=== PATIENT | female | born 1995 | race Caucasian/White ===

== ENCOUNTER 2017-01-10 09:30 | Emergency (ER) | payer OTHER ==
[~2017-01-10] VITALS: Ht 162.6 cm; Wt 74.8 kg
[2017-01-10] MEDS ORDERED: TYLENOL325 MG PO (09:40)
[2017-01-10] MEDS ORDERED: IBUPROFEN400 MG PO (10:04)
== END 2017-01-10 10:39 | disposition home or self-care (01) ==
LOC: ED 09:30
DX: S09.90XA Unspecified injury of head, initial encounter (principal); Z88.0 Allergy status to penicillin; W22.8XXA Striking against or struck by other objects, initial encounter
CPT/HCPCS: 99283

== ENCOUNTER 2021-04-06 05:40 | Inpatient (IN) | payer OTHER ==
[~2021-04-06] VITALS: Ht 162.6 cm; Wt 74.8 kg
[~2021-04-06 05:40] MED LIST: CARDIZEM30 MG PO; FIBER500 MG PO; IBUPROFEN400 MG PO; KEFLEX500 MG PO; MULTI VITAMIN1 EACH PO; SPRINTEC1 EACH PO; TYLENOL325 MG PO
--- NOTE | 2021-04-06 10:55 | PR ---
[facility] [address] [place], [place] [address] Signed Progress Notes IP Datetime Report Generated by CPN: 04/06/2021 10:55 PROGRESS NOTES: [id number] Impression: Normal Progression of Labor; Reassuring Heart Rate Procedures: Artificial ROM; Sterile Vag Exam Plan: Continue Present Management VITAL SIGNS: [id number] Vital Signs: Reviewed; Within Normal Limits EXAM: [id number] Dilatation: 3.5 Effacement: 75 Station: -3 Contractions: rare MEMBRANES: [id number] ROM Note: amnisure collected Comments: Getting more uncomfortable. Progressing well. Will continue. FETUS A: [id number] FHR Baseline: 120 Variability: Moderate 6-25bpm Accelerations: 15X15 Decelerations: None FHR Category: Category I Presentation: Vertex Comments on Fetus A: No evidence of metabolic acidosis FETUS B: [id number] Signing Physician: Yu Malloy MD Copies: ~ *Electronically Signed* 04/06/21 1055 YU MALLOY MD PATIENT NAME: KAUR ANDREWS BYRON PROGRESS NOTE DATE OF : [birth year] PHYSICIAN: YU MALLOY MD RPT #: [id number] REPORT IS CONFIDENTIAL AND NOT TO BE RELEASED WITHOUT AUTHORIZATION
--- NOTE | 2021-04-06 12:38 | PR ---
[facility] [address] [facility] [place], [place] [address] Signed Progress Notes IP Datetime Report Generated by CPN: 04/06/2021 12:38 PROGRESS NOTES: [id number] Impression: Normal Progression of Labor Procedures: Sterile Vag Exam Plan: Continue Present Management VITAL SIGNS: [id number] Vital Signs: Reviewed; Within Normal Limits EXAM: [id number] Dilatation: 4.5 Effacement: 90 Station: -2 Contractions: rare MEMBRANES: [id number] ROM Note: amnisure collected Comments: Progressing. Will continue. FETUS A: [id number] FHR Baseline: 120 Variability: Moderate 6-25bpm Accelerations: 15X15 Decelerations: None FHR Category: Category I Presentation: Vertex Comments on Fetus A: No evidence of metabolic acidosis FETUS B: [id number] Signing Physician: Yu Malloy MD Copies: ~ *Electronically Signed* 04/06/21 1238 YU MALLOY MD PATIENT NAME: KAUR ANDREWS PROGRESS NOTE DATE OF : [birth year] PHYSICIAN: YU MALLOY MD RPT #: [id number] REPORT IS CONFIDENTIAL AND NOT TO BE RELEASED WITHOUT AUTHORIZATION
--- NOTE | 2021-04-07 08:57 | PR ---
[facility] [address] [facility] [place], [place] [address] Signed PP Progress Notes Datetime Report Generated by CPN: 04/07/2021 08:57 SUBJECTIVE: [id number] Pain: Within Normal Limits Vital Signs: [id number] Vital Signs: Reviewed; Within Normal Limits Cardiovascular: Not Done Respiratory: Not Done Abdomen/Uterus: Abnormal Lochia: Normal Vulva/Perineum: Not Done Breasts: Not Done CVA Tenderness: Not Done Extremities: Normal Incision: Not Applicable Progress: Normal Exam Comments: Fundus firm, NT @ U-4. H/H 11.6/34.7, WBC 17.3, plat 206k IMPRESSION/PLAN/PROCEDURES: [id number] Impression: Normal Progression Plan: Discharge Procedures: None Progress Notes: Doing well. She desires D/C. Signing Physician: Yu Malloy MD Copies: ~ *Electronically Signed* 04/07/21 0857 YU MALLOY MD PATIENT NAME: KAUR ANDREWS PROGRESS NOTE DATE OF : [birth year] PHYSICIAN: YU MALLOY MD RPT #: [id number] REPORT IS CONFIDENTIAL AND NOT TO BE RELEASED WITHOUT AUTHORIZATION
== END 2021-04-07 17:35 | disposition home or self-care (01) | DRG 807 ==
LOC: FBC 05:40
PROVIDERS: ADMIT Obstetrics & Gynecology; ATTEND Obstetrics & Gynecology
PROC: 10E0XZZ Delivery of Products of Conception, External Approach (ICD-10-PCS; principal; 2021-04-06)
PROC: 0KQM0ZZ Repair Perineum Muscle, Open Approach (ICD-10-PCS; 2021-04-06)
PROC: 10907ZC Drainage of Amniotic Fluid, Therapeutic from Products of Conception, Via Natural or Artificial Opening (ICD-10-PCS; 2021-04-06)
PROC: 3E0P7VZ Introduction of Hormone into Female Reproductive, Via Natural or Artificial Opening (ICD-10-PCS; 2021-04-06)
DX: O99.52 Diseases of the respiratory system complicating childbirth (principal); Z37.0 Single live birth; J45.909 Unspecified asthma, uncomplicated; Z3A.39 39 weeks gestation of pregnancy; O70.1 Second degree perineal laceration during delivery; Z79.899 Other long term (current) drug therapy; Z88.0 Allergy status to penicillin
CPT/HCPCS: 01960; 85027; A9270; J2590; J7121

== ENCOUNTER 2022-09-17 11:44 | Emergency (ER) | payer OTHER ==
[~2022-09-17] VITALS: Ht 152.4 cm; Wt 74.8 kg
[2022-09-17] MEDS ORDERED: VYVANSE40 MG PO (11:55)
[2022-09-17] MEDS ORDERED: ESCITALOPRAM OX10 MG PO (11:55)
[2022-09-17] MEDS ORDERED: HYDROXYZINE HCL25 MG PO (11:56)
[2022-09-17] MEDS ORDERED: ONDANSETRON ODT8 MG PO (14:38)
--- NOTE | 2022-09-17 15:10 | EKG ---
[facility] [address] [facility] [place] [address] Signed Normal sinus rhythm with sinus arrhythmia Normal ECG When compared with ECG of 07-JAN-2019 09:28, Vent. rate has decreased BY 84 BPM Non-specific change in ST segment in Inferior leads Confirmed by ANALI GAYTAN MD ([id number]) on 09/17/2022 3:10:11 PM Electronically Signed By: ANALI GAYTAN MD 09/17/22 1510 PATIENT NAME: KAUR ANDREWS Electrocardiogram DATE OF : [birth year] PHYSICIAN: ANALI GAYTAN MD REPORT #: [id number] REPORT IS CONFIDENTIAL AND NOT TO BE RELEASED WITHOUT AUTHORIZATION
== END 2022-09-17 14:52 | disposition home or self-care (01) ==
LOC: ED 11:44
DX: E86.0 Dehydration (principal); R55 Syncope and collapse; J45.909 Unspecified asthma, uncomplicated; Z87.891 Personal history of nicotine dependence; Z88.0 Allergy status to penicillin; Z79.899 Other long term (current) drug therapy
CPT/HCPCS: 36415; 80053; 84443; 84703; 85025; 93005; 93010; 96360; 96361; 99284-25; J7030

== ENCOUNTER 2022-11-29 12:32 | Emergency (ER) | payer OTHER ==
[~2022-11-29] VITALS: Ht 152.4 cm; Wt 55.6 kg
[~2022-11-29 12:32] MED LIST changes: +ESCITALOPRAM OX10 MG PO; +HYDROXYZINE HCL25 MG PO; +ONDANSETRON ODT8 MG PO; +VYVANSE40 MG PO
--- OUTSIDE RECORDS SUMMARY | 2022-11-29 12:34 | XMS ---
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 Pa VISIT COUNT (12 MO.) 2 [facility] TOTAL 2 NOTE: Visits indicate total known visits. ED/UCC VISIT TRACKING (12 MO.) 11/29/2022 12:33 [facility] [place] TYPE: Emergency COMPLAINT: - MEDICATION OVERDOSE 09/17/2022 11:45 [facility] [place] TYPE: Emergency COMPLAINT: - DIZZINESS DIAGNOSES: - Allergy status to penicillin - Dehydration - Dizziness and giddiness - Other correction (current) drug therapy - Personal history of nicotine dependence - Syncope and collapse - Unspecified asthma, uncomplicated INPATIENT VISIT TRACKING (12 MO.) No inpatient visits to display in this time frame [email or web address]
[2022-11-29] MEDS ORDERED: SPRINTEC1 EACH PO (12:56)
[2022-11-29] MEDS ORDERED: VITAMIN D21250 MCG PO (14:35)
[2022-11-29] MEDS ORDERED: MELOXICAM7.5 MG PO (14:37)
[2022-11-29 16:37] VITALS: BP 106/68
== END 2022-11-29 16:37 | disposition home or self-care (01) ==
LOC: ED 12:32
DX: T42.4X1A Poisoning by benzodiazepines, accidental (unintentional), initial encounter (principal); H53.2 Diplopia; J45.909 Unspecified asthma, uncomplicated; Z87.891 Personal history of nicotine dependence; Z88.0 Allergy status to penicillin; Z79.899 Other long term (current) drug therapy
CPT/HCPCS: 99283

== ENCOUNTER 2023-10-31 08:29 | Inpatient (IN) | payer OTHER ==
[~2023-10-31] VITALS: Ht 162.6 cm; Wt 76.2 kg
[~2023-10-31 08:29] MED LIST changes: +MELOXICAM7.5 MG PO; +VITAMIN D21250 MCG PO
[2023-10-31] MEDS ORDERED: MAGNESIUM HYDROXIDE/AL HYDROX 30 ML CUP PO PRN (12:00)
[2023-10-31] MEDS ORDERED: LACTATED RINGER'S 1,000 ML IV SCH (12:00)
[2023-10-31] MEDS ORDERED: miSOPROStoL 25 MCG TAB PV SCH (12:00)
[2023-10-31] MEDS ORDERED: CALCIUM CARBONATE 500 MG CHEW PO PRN (12:00)
[2023-10-31] MEDS ORDERED: OXYTOCIN/DEXTROSE 5% 20 UNITS/100 ML BAG IV SCH (12:15)
[2023-10-31 12:29] LABS: HEMATOCRIT 32.9 % (35.0-50.0); HEMOGLOBIN 11.1 g/dL (12.0-18.0); MCH 29.2 (27-36); MCHC 33.8 g/dl (30-36); MCV 86.4 fl (81-99); RBC 3.8 M/ul (4.3-5.7)
[2023-10-31 12:45] LABS: AMPHETAMINES, URINE NEGATIVE (NEGATIVE); BARBITURATES, URINE NEGATIVE (NEGATIVE); BENZODIAZEPINE, URINE NEGATIVE (NEGATIVE); BUPRENORPHINE, URINE NEGATIVE (NEGATIVE); CANNABINOID, URINE POSITIVE (NEGATIVE); COCAINE, URINE NEGATIVE (NEGATIVE); ECSTASY, URINE NEGATIVE (NEGATIVE); FENTANYL, URINE NEGATIVE (NEGATIVE); METHADONE, URINE NEGATIVE (NEGATIVE); OPIATES, URINE NEGATIVE (NEGATIVE); OXYCODONE, URINE NEGATIVE (NEGATIVE); PHENCYCLIDINE, URINE NEGATIVE (NEGATIVE)
[2023-10-31 12:46] VITALS: BP 126/73
[2023-10-31 13:03] LABS: ABO B; ANTIBODY SCREEN NEGATIVE; RH POSITIVE
[2023-10-31] MEDS ORDERED: fentaNYL citrate 100 MCG/2 ML VIAL ONE (18:37)
[2023-10-31] MEDS ORDERED: ROPIVACAINE 0.2% 200 ML BAG ONE (18:37)
[2023-10-31] MEDS ORDERED: ROPIVACAINE 0.2% 200 ML BAG EPIDURAL SCH (18:45)
[2023-10-31] MEDS ORDERED: LACTATED RINGER'S 2,000 ML IV ONE (18:45)
[2023-10-31] MEDS ORDERED: LACTATED RINGER'S 500 ML IV PRN (18:45)
[2023-10-31] MEDS ORDERED: ePHEDrine sulfate 5 MG/ML SYRINGE IV PRN (18:45)
--- NOTE | 2023-10-31 20:26 | PR ---
[facility] [address] [facility] [place], [place] [address] Signed Progress Notes IP Datetime Report Generated by KINGS: 10/31/2023 20:27 PROGRESS NOTES: [id number] Impression: Normal Progression of Labor Procedures: Artificial ROM; Sterile Vag Exam Plan: Continue Present Management VITAL SIGNS: [id number] Vital Signs: Reviewed; Within Normal Limits EXAM: [id number] Dilatation: 3.0 Effacement: 70 Station: -2 Contractions: q 3 to 5 min MEMBRANES: [id number] Comments: Comfortable after epidural with progress. Will continue. May need pit augment if contraction pattern not improved after AROM. FETUS A: [id number] FHR Baseline: 125 Variability: Moderate 6-25bpm Accelerations: 15X15 Decelerations: Early FHR Category: Category I Presentation: Vertex FETUS B: [id number] Signing Physician: Yu Malloy MD Copies: ~ *Electronically Signed* 10/31/232026 YU MALLOY MD PATIENT NAME: KAUR ANDREWS PROGRESS NOTE DATE OF : [birth year] PHYSICIAN: YU MALLOY MD RPT #: [id number] REPORT IS CONFIDENTIAL AND NOT TO BE RELEASED WITHOUT AUTHORIZATION
[2023-10-31] MEDS ORDERED: OXYTOCIN/0.9 % SODIUM CHLORIDE 500 ML IV SCH (22:00)
--- NOTE | 2023-10-31 23:19 | PR ---
[facility] [address] [facility] [place], [place] [address] Signed Progress Notes IP Datetime Report Generated by KINGS: 10/31/2023 23:20 PROGRESS NOTES: [id number] Impression: Normal Progression of Labor Procedures: Intrauterine Pressure Catheter; Sterile Vag Exam Plan: Continue Present Management VITAL SIGNS: [id number] Vital Signs: Reviewed; Within Normal Limits EXAM: [id number] Dilatation: 4.5 Effacement: 90 Station: -2 Contractions: not picking up well MEMBRANES: [id number] Comments: Progressing. Will place [facility] to be able to evaluate contractions better. Will closely observe status but overall feel this is reassuring with accels and variability. FETUS A: [id number] FHR Baseline: 125 Variability: Moderate 6-25bpm Accelerations: 15X15 Decelerations: Late; Variable FHR Category: Category II Presentation: Vertex FETUS B: [id number] Signing Physician: Yu Malloy MD Copies: ~ *Electronically Signed* 10/31/23 5918 YU MALLOY MD PATIENT NAME: KAUR ANDREWS BYRON PROGRESS NOTE DATE OF : [birth year] PHYSICIAN: YU MALLOY MD RPT #: [id number] REPORT IS CONFIDENTIAL AND NOT TO BE RELEASED WITHOUT AUTHORIZATION
[2023-11-01] MEDS ORDERED: LIDOCAINE 2% VISCOUS 6 ML SYR TOP ONE ×2 (01:00)
[2023-11-01] MEDS ORDERED: OXYTOCIN/DEXTROSE 5% 20 UNITS/100 ML BAG IV SCH (01:00)
[2023-11-01] MEDS ORDERED: ACETAMINOPHEN 325 MG TAB PO PRN (01:00)
[2023-11-01] MEDS ORDERED: HYDROCODONE/ACETA 5/325 TAB PO PRN (01:00)
[2023-11-01] MEDS ORDERED: OXYTOCIN/0.9 % SODIUM CHLORIDE 500 ML IV SCH (01:00)
[2023-11-01] MEDS ORDERED: MAGNESIUM HYDROXIDE/AL HYDROX 30 ML CUP PO PRN (01:00)
[2023-11-01] MEDS ORDERED: MAGNESIUM HYDROXIDE 30 ML UDC PO PRN (01:00)
[2023-11-01] MEDS ORDERED: HYDROCORTISONE ACETATE 25 MG SUPP PR PRN (01:00)
[2023-11-01] MEDS ORDERED: WITCH HAZEL/GLYCERIN 1 EA PAD TOP PRN (01:00)
[2023-11-01] MEDS ORDERED: BENZOCAINE 60 ML AEROSOL TOP PRN (01:00)
[2023-11-01] MEDS ORDERED: CALCIUM CARBONATE 500 MG CHEW PO PRN (01:00)
[2023-11-01] MEDS ORDERED: IBUPROFEN 600 MG TAB PO PRN (01:00)
[2023-11-01] MEDS ORDERED: SENNOSIDES/DOCUSATE 1 EA TAB PO SCH (09:00)
[2023-11-02 05:22] LABS: HEMATOCRIT 33.2 % (35.0-50.0); HEMOGLOBIN 11.1 g/dL (12.0-18.0); MCH 29.2 (27-36); MCHC 33.3 g/dl (30-36); MCV 87.6 fl (81-99); RBC 3.79 M/ul (4.3-5.7); RDW 15.3 (10.5-15.0)
--- NOTE | 2023-11-02 08:08 | PR ---
[facility] [address] [facility] [place], [place] [address] Signed PP Progress Notes Datetime Report Generated by KINGS: 11/02/2023 08:08 SUBJECTIVE: [id number] Pain: Within Normal Limits Vital Signs: [id number] Vital Signs: Reviewed; Within Normal Limits Cardiovascular: Not Done Respiratory: Not Done Abdomen/Uterus: Abnormal Lochia: Normal Vulva/Perineum: Not Done Breasts: Not Done CVA Tenderness: Not Done Extremities: Normal Incision: Not Applicable Progress: Normal Exam Comments: Fundus firm, NT @ U-2. H/H 11.1/33.2, WBC 12.2, plat 210k IMPRESSION/PLAN/PROCEDURES: [id number] Impression: Normal Progression Plan: Discharge Procedures: None Progress Notes: Doing well. I feel she is ready for D/C. Signing Physician: Yu Malloy MD Copies: ~ *Electronically Signed* 11/02/23807 YU MALLOY MD PATIENT NAME: KAUR ANDREWS PROGRESS NOTE DATE OF : [birth year] PHYSICIAN: YU MALLOY MD RPT #: [id number] REPORT IS CONFIDENTIAL AND NOT TO BE RELEASED WITHOUT AUTHORIZATION
== END 2023-11-02 13:54 | disposition home or self-care (01) | DRG 806 ==
LOC: FBC 08:29
PROVIDERS: ADMIT Obstetrics & Gynecology; ATTEND Obstetrics & Gynecology
PROC: 10E0XZZ Delivery of Products of Conception, External Approach (ICD-10-PCS; principal; 2023-10-31)
PROC: 0KQM0ZZ Repair Perineum Muscle, Open Approach (ICD-10-PCS; 2023-10-31)
PROC: 10907ZC Drainage of Amniotic Fluid, Therapeutic from Products of Conception, Via Natural or Artificial Opening (ICD-10-PCS; 2023-10-31)
PROC: 3E0R3BZ Introduction of Anesthetic Agent into Spinal Canal, Percutaneous Approach (ICD-10-PCS; 2023-10-31)
PROC: 00HU33Z Insertion of Infusion Device into Spinal Canal, Percutaneous Approach (ICD-10-PCS; 2023-10-31)
DX: O32.0XX0 Maternal care for unstable lie, not applicable or unspecified (principal); O99.324 Drug use complicating childbirth; Z37.0 Single live birth; Z3A.39 39 weeks gestation of pregnancy; O99.344 Other mental disorders complicating childbirth; O70.1 Second degree perineal laceration during delivery; F12.90 Cannabis use, unspecified, uncomplicated; F41.8 Other specified anxiety disorders; Z87.891 Personal history of nicotine dependence; Z88.0 Allergy status to penicillin; Z91.038 Other insect allergy status; Z79.899 Other long term (current) drug therapy
CPT/HCPCS: 36415; 80307; 85027; 86850; 86900; 86901; A9270; J2590; J7121

== ENCOUNTER 2024-04-08 14:23 | Observation (INO) | payer OTHER ==
[~2024-04-08] VITALS: Ht 162.6 cm; Wt 74.2 kg
[~2024-04-08 14:23] MED LIST changes: +SEVOFLURANE 250 ML BTL INH ONE
[2024-04-08 15:14] LABS: BASOPHILS 0.1 % (0-2); EOSINOPHILS 0.6 % (0-6); HEMATOCRIT 38.5 % (35.0-50.0); HEMOGLOBIN 12.9 g/dL (12.0-18.0); LYMPHOCYTES 11.4 % (24-44); MCH 29.8 (27-36); MCHC 33.5 g/dl (30-36); NEUTROPHILS 84.9 % (39-80); PLATELET COUNT 226 K/uL (140-440); RBC 4.32 M/ul (4.3-5.7); RDW 12.8 (10.5-15.0)
[2024-04-08] MEDS ORDERED: ondansetron HCL 4 MG/2 ML VIAL IV ONE (15:15)
[2024-04-08] MEDS ORDERED: KETOROLAC TROMETHAMINE 30 MG/ML VIAL IV ONE (15:15)
[2024-04-08 15:25] LABS: ALBUMIN 3.9 g/dL (3.4-5.0); ALBUMIN/GLOBULIN RATIO 1.18 (1.1-2.4); ANION GAP 14.7 (7-21); BILIRUBIN, TOTAL 0.6 ng/dL (0.2-1.0); BUN/CREATININE RATIO 10.86 (6.0-28.6); CALCIUM 8.5 mg/dL (8.5-10.1); CREATININE, SERUM 0.92 mg/dL (0.55-1.02); POTASSIUM 3.7 mmol/L (3.5-5.1); PROTEIN, TOTAL 7.2 g/dL (6.4-8.2)
[2024-04-08 15:39] LABS: BILIRUBIN, URINE NEGATIVE (negative); BLOOD/HGB, URINE LARGE (Negative); KETONE, URINE SMALL (Negative); LEUK ESTERASE, URINE TRACE (negative); NITRITE, URINE POSITIVE (negative); PH, URINE 8.5 (5-7)
[2024-04-08 15:47] LABS: BACTERIA, URINE RARE /hpf (negative); CASTS, URINE NONE SEEN \\lpf; CRYSTALS, URINE NONE SEEN (0-1+); EPITHELIAL CELLS, URINE NONE SEEN /lpf (0-1+); RED BLOOD CELLS, URINE >50 /hpf (0-5); WHITE BLOOD CELLS, URINE 0-1 /HPF (0-5)
[2024-04-08 15:48] LABS: COLLECTION TYPE, URINE CLEAN CATCH; REFLEX CULTURE, URINE No (No)
[2024-04-08 15:52] LABS: ABO B; RH POSITIVE
[2024-04-08] MEDS ORDERED: HYDROmorphone HCL 1 MG/ML SYR IV ONE (18:00)
[2024-04-08] MEDS ORDERED: ROCURONIUM BROMIDE 50 MG/5 ML SYR ONE (18:39)
[2024-04-08] MEDS ORDERED: ACETAMINOPHEN 1,000 MG/100 ML VIAL ONE (18:39)
[2024-04-08] MEDS ORDERED: LIDOCAINE HCL 2% 5 ML SDV ONE ×2 (18:39→18:42)
[2024-04-08] MEDS ORDERED: SCOPOLAMINE 1 MG/3 DAYS PATCH 1 EACH TDSY ONE (18:39)
[2024-04-08] MEDS ORDERED: propofoL 200 MG/20 ML VIAL ONE (18:39)
[2024-04-08] MEDS ORDERED: KETOROLAC TROMETHAMINE 30 MG/ML VIAL ONE (18:39)
[2024-04-08] MEDS ORDERED: LIDOCAINE HCL 4% 5 ML AMP ONE (18:39)
[2024-04-08] MEDS ORDERED: ondansetron HCL 4 MG/2 ML VIAL ONE (18:39)
[2024-04-08] MEDS ORDERED: DEXAMETHASONE SOD PHOS 4 MG/ML VIAL ONE (18:39)
[2024-04-08] MEDS ORDERED: fentaNYL citrate 100 MCG/2 ML VIAL ONE (18:42)
[2024-04-08] MEDS ORDERED: dexmedeTOMIDine HCl 200 MCG/2 ML VIAL ONE (18:42)
[2024-04-08] MEDS ORDERED: KETAMINE in NS 50 MG/5 ML SYR ONE (18:50)
[2024-04-08] MEDS ORDERED: ondansetron HCL 4 MG/2 ML VIAL IV PRN (19:00)
[2024-04-08] MEDS ORDERED: fentaNYL citrate 50 MCG/ML SDV IV PRN (19:00)
[2024-04-08] MEDS ORDERED: IBLOOD GLUCOSE TEST STRIP 1 EA TEST VI PRN (19:00)
[2024-04-08] MEDS ORDERED: droPERidol 5 MG/2 ML VIAL IV PRN (19:00)
[2024-04-08] MEDS ORDERED: HYDROmorphone HCL 1 MG/ML SYR IV PRN (19:00)
[2024-04-08] MEDS ORDERED: NALOXONE HCL 0.4 MG SYR IV PRN ×2 (19:00→20:00)
[2024-04-08] MEDS ORDERED: SUGAMMADEX SODIUM 200 MG/2 ML ML ONE (19:28)
[2024-04-08] MEDS ORDERED: IBUPROFEN 800 MG TAB PO PRN (20:00)
[2024-04-08] MEDS ORDERED: OXYCODONE/APAP 5/325 TAB PO PRN (20:00)
[2024-04-08] MEDS ORDERED: ZOLPIDEM TARTRATE 5 MG TAB PO PRN (20:00)
--- NOTE | 2024-04-08 20:13 | NUR ---
04/08/242012 Pallavi Rasmussen 1951-PT ARRIVED TO PACU ON RA. PT REACTIVE TO VERBAL STIMULATION. SURGICAL SITES OBSERVED. NOTED 3 LAP SITES TO ABD WITH SUTURES AND DERMABOND. SITES X3 ARE CDI. 1953-DR. SALAS AT PTS BEDSIDE DISCUSSING CASE. PT DROWSY AND EASILY FALLS IN AND OUT OF SLEEP. 1999-MISSY PAD IN PLACE. NO DRAIANGE OBSERVED. RR REMAINS EVEN AND UNLABORED. PT DENIES PAIN OR NAUSEA. 2004-PT ASKING FOR WATER. HOB ELEVATED APPROX 30 DEGREES. PT GIVEN SMALL SIPS OF WATER. 2009-PT MORE ALERT AND ASKING HOW SURGERY WENT. PT UPDATED. PT CONT TO DENY PAIN OR NAUSEA. SATS MAINTAINING AT 97% OR GREATER ON RA.
--- NOTE | 2024-04-08 20:35 | NUR ---
2022- ADMITTED TO ROOM [address],
--- NOTE | 2024-04-08 20:44 | NUR ---
PT TO FLOOR WITH TRANSLATOR INTERPRETER. REPORT RECEIVED. PT ALERT AND ORIENTED. REPORTS ABD PAIN 07/05. ICE PACK PROVIDED. LAP SITES X 3 INTACT. NO DRAINAGE OR REDNESS NOTED. SCANT AMOUNT RED DRAINAGE ON MISSY PAD. PT DENIES NAUSEA. WATER AT BEDSIDE. ASSESSMENT COMPLETE. PT ORIENTED TO ROOM AND NURSE CALL LIGHT. DENIES QUESTIONS OR CONCERNS. CALL LIGHT IN REACH.
[2024-04-08] MEDS ORDERED: OXYCODONE/ACETAMINOPHEN 1 TAB HOME.PACK PO ONE ×2 (20:45→23:15)
[2024-04-08 21:28] VITALS: BP 105/61
[2024-04-08 21:30] VITALS: BP 105/61
--- NOTE | 2024-04-08 21:39 | NUR ---
PT UP TO BR WITH MINIMAL SBA TO VOID 400 ML LIGHT PINK URINE. SCANT AMOUNT RED NOTED IN BOTTOM OF HAT. SMALL AMOUNT RED DRAINAGE IN MISSY PAD. CLEAN MISSY PAD PROVIDED. BACK TO BED. PT DENIES NAUSEA. REPORTS 3/10 HEADACHE PAIN. PRN FOR PAIN ADMIN PER EMAR. SANDWICH BOX PROVIDED. POST OP VS COMPLETE. PT DENIES FURTHER NEEDS. CALL LIGHT IN REACH.
[2024-04-08 22:28] VITALS: BP 112/60
--- NOTE | 2024-04-08 22:30 | NUR ---
POST OP VS COMPLETE, WNL. PT DENIES PAIN OR NAUSEA. YUDELKA REG DIET WELL. UP TO BR TO GET DRESSED.
--- NOTE | 2024-04-08 22:49 | NUR ---
DC INSTRUCTIONS GIVEN TO PT VERBALLY AND WRITTEN, STATED UNDERSTANDING
--- NOTE | 2024-04-08 23:23 | NUR ---
PT DENIES PAIN OR NAUSEA. IV IN RIGHT AC DC'D WNL. ABD LAP SITES X 3 WELL APPROXIMATED. NO REDNESS OR DRAINAGE NOTED. ABD SOFT. PT GIVEN DISCHARGE INSTRUCTIONS BY MECHANICAL TECHNICIAN. TAKE HOME PACK OF PAIN MEDS AND SCRIPT GIVEN TO PT. INSTRUCTIONS PROVIDED. PT VERBALIZES UNDERSTANDING. PT LEFT THE FLOOR VIA WC WITH PERSONAL BELONGINGS TO PERSONAL VEHICLE AT FRONT ENTRANCE OF THE HOSPITAL.
--- NOTE | 2024-04-11 21:06 | PATH ---
[facility] [address] [place], [place] [address] Signed SPECIMEN(S): A RIGHT FALLOPIAN TUBE SPECIMEN SOURCE: A. RIGHT FALLOPIAN TUBE CLINICAL HISTORY: Ectopic FINAL PATHOLOGIC DIAGNOSIS: Right fallopian tube, salpingectomy: - Disrupted fallopian tube with first trimester chorionic villi identified in the wall of the tube and within organizing blood clot separate from the tube. - Features are consistent with ruptured ectopic . - No gestational sac or tissue identified. - Benign 0.9 cm paratubal cyst. - Negative for atypia and malignancy. SDL MICROSCOPIC EXAMINATION: Histologic sections of all submitted blocks are examined by light microscopy. These findings, together with the gross examination, support the pathologic diagnosis. GROSS DESCRIPTION: The specimen, labeled and designated "Lynette Silva, right fallopian tube," is received in formalin and consists of red-brown fallopian tube with attached fimbriated and multiple fragments of dark red blood clot. The fallopian tube measures 5.4 cm in length by 1.9 cm in greatest diameter with attached fimbriated end. It has a 1.5 x 1.5 cm hemorrhagic defect in the midportion. Sections show a dilated lumen filled with blood clot. There is a single peritubular cyst measuring 0.9 cm in greatest dimension. Separate from the tube is a 5.0 x 4.5 x 1.7 cm aggregate of blood clot. No grossly identifiable embryonic tissue is identified in the tube or blood clot. Professional Athletes Coach sections are submitted. Cassette Summary: (A1-A2) territory sales representative sections of the fallopian tube (A3) territory sales representative sections of the clot material JM (under the direct supervision of a pathologist) PATIENT NAME: KAUR SILVA PATHOLOGY DATE OF : [birth year] REPORT #: [id number] PHYSICIAN: TENZIN LABOY PCP: IMAN MOREIRA PAC REPORT IS CONFIDENTIAL AND NOT TO BE RELEASED WITHOUT AUTHORIZATION [facility] [address] [place], [place] [address] Signed The Gross Description was prepared using a voice recognition system. The report was reviewed for accuracy; however, sound-alike word errors, addition and/or deletions may occur. If there are any questions about this report, please contact Client Services. ADDITIONAL NOTES: Immunohistochemical and/or in situ hybridization studies if performed in this case included appropriate positive controls that reacted as expected. This test was developed and its performance characteristics determined by [facility]. It has not been cleared or approved by the U.S. Food and Drug Administration. The FDA has determined that such clearance or approval is not necessary. This test is used for clinical purposes. It should not be regarded as investigational or for research. [facility] is certified under the Clinical Laboratory Improvement Amendments of 1988 (CLIA) as qualified to perform high complexity clinical laboratory testing. PERFORMING LABORATORY: Technical component was performed by [facility], [address] [place] [id number] (CLIA# [id number]). Professional interpretation was performed by [facility], [address] [place] [id number] (CLIA#: [id number]). Diagnostician: Josselyn Ackerman MD Pathologist Electronically Signed 04/11/2024 Copies: ~ PATIENT NAME: KAUR SILVA PATHOLOGY DATE OF : [birth year] REPORT #: [id number] PHYSICIAN: TENZIN LABOY PCP: IMAN MOREIRA PAC REPORT IS CONFIDENTIAL AND NOT TO BE RELEASED WITHOUT AUTHORIZATION
== END 2024-04-08 23:20 | disposition home or self-care (01) ==
LOC: ED 14:23 → MS 14:25 → ED 18:51 → MS 23:20
PROVIDERS: Emergency Medicine; ADMIT Obstetrics & Gynecology; ATTEND Obstetrics & Gynecology
PROC: 10T24ZZ Resection of Products of Conception, Ectopic, Percutaneous Endoscopic Approach (ICD-10-PCS; principal; 2024-04-08 19:00)
DX: O00.90 Unspecified ectopic pregnancy without intrauterine pregnancy (principal); N83.8 Other noninflammatory disorders of ovary, fallopian tube and broad ligament
CPT/HCPCS: 00840; 36415; 76801; 76817; 80053; 81001; 83690; 84702; 84703; 85025; 86900; 86901; 88305; 96374; 96375; 99285-25; A9270; J0131; J1100; J1885; J2405; J2704; J3010; J3490

== ENCOUNTER 2025-06-16 08:30 | Emergency (ER) | payer OTHER ==
[~2025-06-16] VITALS: Ht 162.6 cm; Wt 68.2 kg
[~2025-06-16 08:30] MED LIST changes: -SEVOFLURANE 250 ML BTL INH ONE
[2025-06-16] MEDS ORDERED: FLUTICASONE PRO16 GM NAS (08:44)
[2025-06-16] MEDS ORDERED: PREDNISONE20 MG PO (09:13)
[2025-06-16] MEDS ORDERED: predniSONE 20 MG TAB PO ONE (09:15)
[2025-06-16 09:22] VITALS: BP 128/89
== END 2025-06-16 09:20 | disposition home or self-care (01) ==
LOC: ED 08:30
DX: L50.0 Allergic urticaria (principal); J45.909 Unspecified asthma, uncomplicated; F17.200 Nicotine dependence, unspecified, uncomplicated; Z88.0 Allergy status to penicillin; Z79.899 Other long term (current) drug therapy
CPT/HCPCS: 99282; J7512